=== PATIENT | female | born 1990 | race African-American/Black ===

== ENCOUNTER 2019-01-15 19:30 | Emergency (ER) | payer OTHER ==
[~2019-01-15] VITALS: Ht 170.2 cm; Wt 86.0 kg
[~2019-01-15 19:30] MED LIST: PREN1CAP13 PO
[2019-01-15] MEDS ORDERED: KETOROLAC 60MG/2ML VIAL IM ONE (23:00)
[2019-01-15 23:07] LABS: *BARBITURATES SCREEN URINE NEGATIVE (NEGATIVE); *BENZODIAZEPINES SCREEN URINE NEGATIVE (NEGATIVE)
[2019-01-15 23:08] LABS: *AMPHETAMINES SCREEN URINE NEGATIVE (NEGATIVE); *COCAINE SCREEN URINE NEGATIVE (NEGATIVE); CANNABINOID URINE SCREEN NEGATIVE (NEGATIVE); METHADONE URINE SCREEN NEGATIVE (NEGATIVE); OPIATES URINE SCREEN NEGATIVE (NEGATIVE); PHENCYCLIDINE URINE SCREEN NEGATIVE (NEGATIVE)
[2019-01-15 23:40] LABS: CLARITY URINE CLOUDY (CLEAR); COLOR URINE YELLOW (YELLOW); KETONES URINE NEGATIVE (NEGATIVE); LEUKOCYTE ESTERASE URINE 3+ (NEGATIVE); NITRITE URINE NEGATIVE (NEGATIVE); OCCULT BLOOD URINE NEGATIVE (NEGATIVE); PH URINE 6.5 (4.5-8.0); PROTEIN URINE NEGATIVE (NEGATIVE); SPECIFIC GRAVITY URINE 1.013 (1.005-1.030); UROBILINOGEN URINE 0.2 E.U./dL (0.2-1.0)
[2019-01-16 00:43] VITALS: BP 123/67
== END 2019-01-16 00:45 | disposition home or self-care (01) ==
LOC: ER 19:30
DX: K08.89 Other specified disorders of teeth and supporting structures (principal); N39.0 Urinary tract infection, site not specified; R03.0 Elevated blood-pressure reading, without diagnosis of hypertension; R19.7 Diarrhea, unspecified; F17.210 Nicotine dependence, cigarettes, uncomplicated
CPT/HCPCS: 80305; 81003; 81025; 96372; 99283; J1885

== ENCOUNTER 2021-01-31 21:30 | Emergency (ER) | payer MEDICAID, OTHER ==
[~2021-01-31] VITALS: Ht 167.6 cm; Wt 66.0 kg
[2021-01-31 21:39] VITALS: BP 114/84
== END 2021-01-31 21:58 | disposition left against medical advice (07) ==
LOC: ER 21:31
DX: R06.02 Shortness of breath (principal); Z53.21 Procedure and treatment not carried out due to patient leaving prior to being seen by health care provider

== ENCOUNTER 2021-02-28 00:06 | Emergency (ER) | payer OTHER ==
[~2021-02-28] VITALS: Ht 175.3 cm; Wt 68.0 kg
[2021-02-28 00:13] VITALS: BP 154/75
[2021-02-28] MEDS ORDERED: ALBUTEROL (0.083%) 2.5MG/3ML NEB HHN STA (00:17)
[2021-02-28] MEDS ORDERED: LORAZEPAM 2MG/ML CPJ IV ONE (00:30)
== END 2021-02-28 01:06 | disposition left against medical advice (07) ==
LOC: ER 00:06
DX: R45.1 Restlessness and agitation (principal); J45.909 Unspecified asthma, uncomplicated; Z98.890 Other specified postprocedural states
CPT/HCPCS: 99283

== ENCOUNTER 2022-10-16 19:05 | Emergency (ER) | payer MEDICAID, OTHER ==
[~2022-10-16] VITALS: Ht 170.2 cm; Wt 75.0 kg
[2022-10-16 19:08] VITALS: BP 125/68
== END 2022-10-16 20:46 | disposition left against medical advice (07) ==
LOC: ER 19:18
DX: Z53.21 Procedure and treatment not carried out due to patient leaving prior to being seen by health care provider (principal)

== ENCOUNTER 2022-11-12 21:37 | Emergency (ER) | payer MEDICAID ==
[~2022-11-12] VITALS: Ht 170.2 cm; Wt 80.0 kg
[2022-11-12] MEDS ORDERED: ACETAMINOPHEN 325MG TABLET PO STA (22:41)
[2022-11-12] MEDS ORDERED: AMLODIPINE 5MG TABLET PO ONE (23:00)
[2022-11-12 23:10] LABS: BASOPHILS % 0.9 % (0.0-2.0); EOSINOPHILS % 2.8 % (0.0-5.0); HEMOGLOBIN. 12.3 g/dL (12.0-16.0); LYMPHOCYTES % 35.1 % (20.0-50.0); MEAN CORPUSCULAR HEMOGLOBIN 27.5 pg (28.0-32.0); MEAN CORPUSCULAR VOLUME 84.9 fL (81.0-99.0); MEAN PLATELET VOLUME 8.1 fl (7.4-10.4); MONOCYTES % 6.2 % (2.0-8.0); PLATELET 230 x1000/uL (130-400); RED BLOOD CELL COUNT 4.47 mill/uL (4.2-5.4); RED CELL DISTRIBUTION WIDTH 16.1 % (11.6-14.6)
[2022-11-12] MEDS ORDERED: IBUPROFEN 600MG TABLET PO ONE (23:15)
[2022-11-12 23:18] LABS: CHLORIDE 112 mEq/L (98-107)
[2022-11-12 23:54] LABS: CLARITY URINE CLEAR (CLEAR); COLOR URINE YELLOW (YELLOW); KETONES URINE NEGATIVE (NEGATIVE); LEUKOCYTE ESTERASE URINE TRACE (NEGATIVE); NITRITE URINE NEGATIVE (NEGATIVE); OCCULT BLOOD URINE NEGATIVE (NEGATIVE); PH URINE 5.5 (4.5-8.0); PROTEIN URINE NEGATIVE (NEGATIVE)
[2022-11-13 00:23] VITALS: BP 131/66
== END 2022-11-13 00:52 | disposition home or self-care (01) ==
LOC: ER 21:53
DX: I10 Essential (primary) hypertension (principal)
CPT/HCPCS: 36415; 80053; 81003; 81025; 83615; 83735; 84550; 84702; 85025; 99283

== ENCOUNTER 2023-01-01 21:00 | Emergency (ER) | payer MEDICAID ==
[~2023-01-01] VITALS: Ht 172.7 cm; Wt 91.0 kg
[2023-01-01 21:14] VITALS: BP 109/69
[2023-01-01] MEDS ORDERED: ACETAMINOPHEN 325MG TABLET PO ONE (21:15)
[2023-01-01] MEDS ORDERED: IBUP-2029 MT (22:04)
== END 2023-01-01 22:17 ==
LOC: ER 21:00
DX: S93.401A Sprain of unspecified ligament of right ankle, initial encounter (principal); W18.39XA Other fall on same level, initial encounter; Y93.89 Activity, other specified; Y92.89 Other specified places as the place of occurrence of the external cause; Y99.8 Other external cause status; I10 Essential (primary) hypertension; Z98.890 Other specified postprocedural states
CPT/HCPCS: 73610; 99283

== ENCOUNTER 2023-03-26 21:17 | Emergency (ER) | payer OTHER ==
[~2023-03-26] VITALS: Ht 170.2 cm; Wt 73.0 kg
[~2023-03-26 21:17] MED LIST changes: +IBUP-2029 MT
[2023-03-26 21:29] VITALS: O2SAT 98
[2023-03-26 22:10] VITALS: BP 122/75; PULSE 125; RESP 20; TEMP 98.3
== END 2023-03-26 22:45 | disposition left against medical advice (07) ==
LOC: ER 21:17
DX: Z53.21 Procedure and treatment not carried out due to patient leaving prior to being seen by health care provider (principal)
CPT/HCPCS: 99281; Z7610 ×2